=== PATIENT | male | born 1960 | race Caucasian/White ===

== ENCOUNTER → 2018-08-04 16:57 | Outpatient (CLI) | payer OTHER, SELFPAY ==
--- NOTE | 2018-08-04 17:01 | DI.MRI.S_ITS ---
PROCEDURE: MR LUMBAR SPINE WO CON INDICATIONS: low back pain. Bilateral leg radiculopathy TECHNIQUE: Noncontrast sagittal T1 spin echo and T2 fast echo, sagittal STIR, axial T1 and T2 fast spin echo through the lumbar spine. In cases with scoliosis, additional coronal T2 fast spin echo may be performed. COMPARISON: None. FINDINGS: Image quality: Excellent. Alignment and Curvature: There is straightening of the normal lumbar lordosis. Mild levoconvex scoliotic curvature is noted. A Bone Marrow: Marrow is of normal overall signal. No acute vertebral body compression fractures. Spinal Cord: Conus medullaris terminates at the L1 level. Visualized cord demonstrates normal signal and size. Paraspinous Soft Tissues: No paravertebral masses. T12-L1: Normal appearance. L1-L2: No significant abnormality is seen. L2-L3: Mild to moderate loss of disc height and disc signal are seen. Moderate generalized disc bulge is seen. Mild to moderate neural foraminal narrowing is seen. Mild to moderate central canal narrowing is seen. L3-L4: Mild loss of disc height is seen. Loss of disc signal is seen. Moderate generalized disc bulge is seen. Mild facet joint hypertrophy is seen. There is moderate left-sided and mild to moderate right-sided neural foraminal narrowing seen. Mild to moderate central canal narrowing is seen. L4-L5: Mild to moderate loss of disc height and disc signal are seen. Moderate disc bulge is seen, with a central/left disc extrusion, with superior migration of disc material. There is associated moderate central canal narrowing. Mass effect is seen upon the regional nerve roots, including the transiting left L5 nerve roots. There is moderate to severe bilateral neural foraminal narrowing seen, left worse than right. There is a degree of impingement seen upon the exiting nerve roots. L5-S1: Moderate loss of disc height is seen. Loss of disc signal is seen. An annular fissure is seen posteriorly, as on series 5 image 10. Moderate bilateral neural foraminal narrowing is seen. Minimal central canal narrowing is seen. 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 Milder degenerative changes are seen elsewhere. Dictated by: Juan Miguel Sheppard M.D. on 08/04/2018 at 17:42 Approved by: Juan Miguel Sheppard M.D. on 08/04/2018 at 17:47
== END ==
PROVIDERS: Visit Provider Orthopaedic Surgery
DX: M54.5 Low back pain (principal); M51.16 Intervertebral disc disorders with radiculopathy, lumbar region; M47.26 Other spondylosis with radiculopathy, lumbar region
CPT/HCPCS: 72148